=== PATIENT | female | born 1980 | race Caucasian/White ===

== ENCOUNTER 2016-07-25 12:58 | Emergency (ER) | payer BC ==
[~2016-07-25 12:58] MED LIST: ADDERALL20 MG PO; ADVIL PO; APRES25 PO; AT25 PO; BENTYL20 PO; C5 PO; DIL2TAB PO; GLUCPH PO; HYDROCHLOROT12.5 MG PO; I40 PO; LIPITOR10 PO; PROPANOLOL; PROTONIX PO; RANITIDINE300 MG PO; SINGULAIR5 PO; VITS/HERBS/SUPPLEMEN; ZOFRAN4 PO; ZYRTEC ALLGY10 MG PO
== END 2016-07-25 17:07 | disposition home or self-care (01) ==
LOC: ER 12:58
DX: M25.561 Pain in right knee (principal); M54.5 Low back pain; G89.29 Other chronic pain; Z88.5 Allergy status to narcotic agent; Z91.048 Other nonmedicinal substance allergy status; Z79.899 Other long term (current) drug therapy; W19.XXXA Unspecified fall, initial encounter
CPT/HCPCS: 72100; 73110-LT; 73560-RT; 73610-RT; 99284; A9270-GY